=== PATIENT | female | born 1990 | race American Indian/Alaskan Native ===

== ENCOUNTER 2017-05-19 17:05 | Emergency (ER) | payer SELFPAY ==
[2017-05-19 19:05] LABS: Hematocrit 40.2 % (30.3-42.9); Hemoglobin 13.7 gm/dl (10.1-14.3); Mean Corpuscular Hemoglobin 31 pg (28-32); Mean Corpuscular Volume 92 fl (79-97); Red Blood Count 4.36 M/mm3 (3.65-5.03)
[2017-05-19 19:06] LABS: Mean Corpuscular HGB Conc 34 % (30-34); Platelet Count 217 K/mm3 (140-440); Red Cell Distribution Width 12.6 % (13.2-15.2)
[2017-05-19 19:15] LABS: Anion Gap 19 mmol/L; Carbon Dioxide 22 mmol/L (22-30); Chloride 99.5 mmol/L (98-107); Potassium 3.7 mmol/L (3.6-5.0); Sodium 137 mmol/L (137-145)
[2017-05-19 19:16] LABS: BUN/Creatinine Ratio 21.66; Blood Urea Nitrogen 13 mg/dL (7-17); Glucose 96 mg/dL (65-100)
[2017-05-19 19:19] LABS: Albumin 4.6 g/dL (3.9-5); Albumin/Globulin Ratio 1.3 %; Bilirubin,Direct 0.5 mg/dL (0-0.2); Bilirubin,Indirect 0.6 mg/dL; Bilirubin,Total 1.1 mg/dL (0.1-1.2); Total Protein 8.2 g/dL (6.3-8.2)
[2017-05-19 20:03] LABS: Basophils % (Manual) 0 % (0.0-1.8); Blastocytes % (Manual) 0 %
[2017-05-19 20:04] LABS: Anisocytosis 1+; Diff Status Complete; Large Platelets Few; Platelet Estimate Consistent w Auto
[2017-05-19] MEDS ORDERED: PEPCID IV ONE (20:23)
[2017-05-19] MEDS ORDERED: CARAFATE PO ONE (20:23)
[2017-05-19] MEDS ORDERED: NACL 0.9% 500 ML 500 ML IV ONE (20:23)
[2017-05-19] MEDS ORDERED: ALUM-MAG HYDROX-SIMETH 200-200-20MG/5ML PO ONE (20:23)
--- NOTE | 2017-05-19 20:24 | Emergency Department Report ---
ED General Adult HPI - General Chief complaint: Chest Pain Stated complaint: ABD PAIN/CHEST TIGHTNESS Time Seen by Provider: 05/19/17 18:44 Source: patient, EMS, RN notes reviewed Mode of arrival: Stretcher Limitations: No Limitations - History of Present Illness Initial comments: This is a 27-year-old female, the patient is previously unknown to me. The patient does not have a primary care doctor, and denies chronic medical conditions. Patient brought to the hospital by EMS for upper abdominal pain, and chest tightness. The abdominal pain is epigastric, and radiates to the back. There is no vomiting or diaphoresis. Patient specifically denies right upper quadrant pain. Patient reports recent trip from [place], and reports pain with deep inspiration. There is no hematemesis, the patient also endorses brown stool mixed with red blood. She endorses 1-2 episodes of "diarrhea." Over the past 24 hours. No recent antibiotic use, no recent sick contacts, denies IV drug use, denies cocaine use, denies aspirin use. States no exacerbating or relieving factors. -: Gradual Location: chest, abdomen Radiation: back Severity scale (0 -10): 7 Consistency: intermittent Improves with: none Worsens with: none Associated Symptoms: chest pain - Related Data Previous Rx's Medication Instructions Recorded Last Taken Type Dicyclomine [Bentyl] 10 mg PO QID PRN #20 capsule 05/20/17 Unknown Rx Famotidine [Pepcid] 20 mg PO QDAY #20 tablet 05/20/17 Unknown Rx Ondansetron [Zofran Odt] 4 mg PO QID PRN #20 tab.rapdis 05/20/17 Unknown Rx Allergies Allergy/AdvReac Type Severity Reaction Status Date / Time No Known Allergies Allergy Verified 05/19/17 18:05 ED Review of Systems ROS: Stated complaint: ABD PAIN/CHEST TIGHTNESS Other details as noted in HPI Constitutional: denies: diaphoresis, malaise Eyes: denies: vision change ENT: denies: epistaxis Respiratory: denies: shortness of breath Cardiovascular: chest pain Gastrointestinal: abdominal pain. denies: melena Genitourinary: denies: dysuria Musculoskeletal: back pain Skin: denies: lesions Neurological: weakness. denies: headache Psychiatric: anxiety ED Past Medical Hx - Past Medical History Previous Medical History?: No - Surgical History Past Surgical History?: No - Social History Smoking Status: Never Smoker Substance Use Type: None - Medications Home Medications: Home Medications Medication Instructions Recorded Confirmed Last Taken Type Dicyclomine [Bentyl] 10 mg PO QID PRN #20 capsule 05/20/17 Unknown Rx Famotidine [Pepcid] 20 mg PO QDAY #20 tablet 05/20/17 Unknown Rx Ondansetron [Zofran Odt] 4 mg PO QID PRN #20 tab.rapdis 05/20/17 Unknown Rx ED Physical Exam - General Limitations: No Limitations General appearance: alert, in no apparent distress - Head Head exam: Present: atraumatic, normocephalic - Eye Eye exam: Present: normal appearance, EOMI. Absent: nystagmus - ENT ENT exam: Present: normal exam, normal orophraynx, mucous membranes moist, normal external ear exam - Neck Neck exam: Present: normal inspection, full ROM. Absent: tenderness, meningismus - Respiratory Respiratory exam: Present: normal lung sounds bilaterally. Absent: respiratory distress, wheezes, rales, rhonchi, stridor, chest wall tenderness, accessory muscle use, decreased breath sounds, prolonged expiratory - Cardiovascular Cardiovascular Exam: Present: regular rate, normal rhythm, normal heart sounds. Absent: bradycardia, tachycardia, irregular rhythm, systolic murmur, diastolic murmur, rubs, gallop - GI/Abdominal GI/Abdominal exam: Present: soft, normal bowel sounds, other (there is a negative Doyle sign. There is no right upper quadrant tenderness). Absent: distended, tenderness, guarding, rebound, rigid, pulsatile mass - Rectal Rectal exam: Present: normal inspection, normal rectal tone. Absent: heme (-) stool (escorted by nurse DEMETRIUS LAM) - Extremities Exam Extremities exam: Present: normal inspection, full ROM, normal capillary refill. Absent: tenderness, pedal edema, joint swelling, calf tenderness - Back Exam Back exam: Present: normal inspection, full ROM. Absent: tenderness, CVA tenderness (R), CVA tenderness (L), muscle spasm, paraspinal tenderness, vertebral tenderness - Neurological Exam Neurological exam: Present: alert, oriented X3, normal gait, other (Extraocular movements intact. Tongue midline. No facial droop. Facial sensation intact to light touch in the V1, V2, V3 distribution bilaterally. 5 and 5 strength in 4 extremities.. Sensation is intact to light touch in 4 extremities.). Absent : motor sensory deficit - Psychiatric Psychiatric exam: Present: normal affect, normal mood - Skin Skin exam: Present: warm, dry, intact, normal color. Absent: rash ED Course Vital Signs 05/19/17 05/19/17 05/19/17 17:53 18:00 18:21 Temperature 98.7 F Pulse Rate 118 H 105 H Respiratory 16 19 Rate Blood Pressure 108/74 107/77 108/74 O2 Sat by Pulse 100 98 Oximetry 05/19/17 05/19/17 05/19/17 18:40 19:01 19:21 Temperature Pulse Rate 105 H 101 H 102 H Respiratory 25 H 20 20 Rate Blood Pressure 107/77 107/77 107/77 O2 Sat by Pulse 100 100 100 Oximetry 05/19/17 19:37 Temperature 98.3 F Pulse Rate Respiratory 17 Rate Blood Pressure O2 Sat by Pulse 99 Oximetry ED Medical Decision Making - Lab Data Result diagrams: 05/19/17 18:15 05/19/17 18:15 Vital Signs 05/19/17 05/19/17 05/19/17 17:53 18:00 18:21 Temperature 98.7 F Pulse Rate 118 H 105 H Respiratory 16 19 Rate Blood Pressure 108/74 107/77 108/74 O2 Sat by Pulse 100 98 Oximetry 05/19/17 05/19/17 05/19/17 18:40 19:01 19:21 Temperature Pulse Rate 105 H 101 H 102 H Respiratory 25 H 20 20 Rate Blood Pressure 107/77 107/77 107/77 O2 Sat by Pulse 100 100 100 Oximetry 05/19/17 19:37 Temperature 98.3 F Pulse Rate Respiratory 17 Rate Blood Pressure O2 Sat by Pulse 99 Oximetry Lab Results 05/19/17 05/19/17 05/19/17 Range/Units 18:15 18:15 18:15 WBC 15.0 H (4.5-11.0) K/mm3 RBC 4.36 (3.65-5.03) M/mm3 Hgb 13.7 (10.1-14.3) gm/dl Hct 40.2 (30.3-42.9) % MCV 92 (79-97) fl MCH 31 (28-32) pg MCHC 34 (30-34) % RDW 12.6 L (13.2-15.2) % Plt Count 217 (140-440) K/mm3 Add Manual Diff Complete Total Counted 100 Seg Neuts % (Manual) 94.0 H (40.0-70.0) % Band Neutrophils % 0 % Lymphocytes % (Manual) 3.0 L (13.4-35.0) % Reactive Lymphs % (Man) 0 % Monocytes % (Manual) 2.0 (0.0-7.3) % Eosinophils % (Manual) 1.0 (0.0-4.3) % Basophils % (Manual) 0 (0.0-1.8) % Metamyelocytes % 0 % Myelocytes % 0 % Promyelocytes % 0 % Blast Cells % 0 % Nucleated RBC % Not Reportable Seg Neutrophils # Man 14.1 H (1.8-7.7) K/mm3 Band Neutrophils # 0.0 K/mm3 Lymphocytes # (Manual) 0.5 L (1.2-5.4) K/mm3 Abs React Lymphs (Man) 0.0 K/mm3 Monocytes # (Manual) 0.3 (0.0-0.8) K/mm3 Eosinophils # (Manual) 0.2 (0.0-0.4) K/mm3 Basophils # (Manual) 0.0 (0.0-0.1) K/mm3 Metamyelocytes # 0.0 K/mm3 Myelocytes # 0.0 K/mm3 Promyelocytes # 0.0 K/mm3 Blast Cells # 0.0 K/mm3 WBC Morphology Not Reportable Hypersegmented Neuts Not Reportable Hyposegmented Neuts Not Reportable Hypogranular Neuts Not Reportable Smudge Cells Not Reportable Toxic Granulation Not Reportable Toxic Vacuolation Not Reportable Dohle Bodies Not Reportable Pelger-Huet Anomaly Not Reportable Janet Rods Not Reportable Platelet Estimate Consistent w auto Clumped Platelets Not Reportable Plt Clumps, EDTA Not Reportable Large Platelets Few Giant Platelets Not Reportable Platelet Satelliting Not Reportable Plt Morphology Comment Not Reportable RBC Morphology Not Reportable Dimorphic RBCs Not Reportable Polychromasia Not Reportable Hypochromasia Not Reportable Poikilocytosis Not Reportable Anisocytosis 1+ Microcytosis Not Reportable Macrocytosis Not Reportable Spherocytes Not Reportable Pappenheimer Bodies Not Reportable Sickle Cells Not Reportable Target Cells Not Reportable Tear Drop Cells Not Reportable Ovalocytes Not Reportable Helmet Cells Not Reportable Wei-Cutter Bodies Not Reportable Russell Rings Not Reportable Greer Cells Not Reportable Bite Cells Not Reportable Crenated Cell Not Reportable Elliptocytes Not Reportable Acanthocytes (Spur) Not Reportable Rouleaux Not Reportable Hemoglobin C Crystals Not Reportable Schistocytes Not Reportable Malaria parasites Not Reportable Ritesh Bodies Not Reportable Hem Pathologist Commnt No PT (12.2-14.9) Sec. INR (0.87-1.13) D-Dimer (0-234) ng/mlDDU Sodium 137 (137-145) mmol/L Potassium 3.7 (3.6-5.0) mmol/L Chloride 99.5 (98-107) mmol/L Carbon Dioxide 22 (22-30) mmol/L Anion Gap 19 mmol/L BUN 13 (7-17) mg/dL Creatinine 0.6 L (0.7-1.2) mg/dL Estimated GFR > 60 ml/min BUN/Creatinine Ratio 21.66 % Glucose 96 (65-100) mg/dL Calcium 12.0 H (8.4-10.2) mg/dL Total Bilirubin (0.1-1.2) mg/dL Direct Bilirubin (0-0.2) mg/dL Indirect Bilirubin mg/dL AST (5-40) units/L ALT (7-56) units/L Alkaline Phosphatase (35-129) units/L Troponin T < 0.010 (0.00-0.029) ng/mL Total Protein (6.3-8.2) g/dL Albumin (3.9-5) g/dL Albumin/Globulin Ratio % Amylase (27-131) units/L Lipase (13-60) units/L HCG, Qual Negative (Negative) 05/19/17 05/19/17 05/19/17 Range/Units 18:15 21:00 21:00 WBC (4.5-11.0) K/mm3 RBC (3.65-5.03) M/mm3 Hgb (10.1-14.3) gm/dl Hct (30.3-42.9) % MCV (79-97) fl MCH (28-32) pg MCHC (30-34) % RDW (13.2-15.2) % Plt Count (140-440) K/mm3 Add Manual Diff Total Counted Seg Neuts % (Manual) (40.0-70.0) % Band Neutrophils % % Lymphocytes % (Manual) (13.4-35.0) % Reactive Lymphs % (Man) % Monocytes % (Manual) (0.0-7.3) % Eosinophils % (Manual) (0.0-4.3) % Basophils % (Manual) (0.0-1.8) % Metamyelocytes % % Myelocytes % % Promyelocytes % % Blast Cells % % Nucleated RBC % Seg Neutrophils # Man (1.8-7.7) K/mm3 Band Neutrophils # K/mm3 Lymphocytes # (Manual) (1.2-5.4) K/mm3 Abs React Lymphs (Man) K/mm3 Monocytes # (Manual) (0.0-0.8) K/mm3 Eosinophils # (Manual) (0.0-0.4) K/mm3 Basophils # (Manual) (0.0-0.1) K/mm3 Metamyelocytes # K/mm3 Myelocytes # K/mm3 Promyelocytes # K/mm3 Blast Cells # K/mm3 WBC Morphology Hypersegmented Neuts Hyposegmented Neuts Hypogranular Neuts Smudge Cells Toxic Granulation Toxic Vacuolation Dohle Bodies Pelger-Huet Anomaly Janet Rods Platelet Estimate Clumped Platelets Plt Clumps, EDTA Large Platelets Giant Platelets Platelet Satelliting Plt Morphology Comment RBC Morphology Dimorphic RBCs Polychromasia Hypochromasia Poikilocytosis Anisocytosis Microcytosis Macrocytosis Spherocytes Pappenheimer Bodies Sickle Cells Target Cells Tear Drop Cells Ovalocytes Helmet Cells Wei-Cutter Bodies Russell Rings Greer Cells Bite Cells Crenated Cell Elliptocytes Acanthocytes (Spur) Rouleaux Hemoglobin C Crystals Schistocytes Malaria parasites Ritesh Bodies Hem Pathologist Commnt PT 13.0 (12.2-14.9) Sec. INR 0.99 (0.87-1.13) D-Dimer 366.59 H (0-234) ng/mlDDU Sodium (137-145) mmol/L Potassium (3.6-5.0) mmol/L Chloride (98-107) mmol/L Carbon Dioxide (22-30) mmol/L Anion Gap mmol/L BUN (7-17) mg/dL Creatinine (0.7-1.2) mg/dL Estimated GFR ml/min BUN/Creatinine Ratio % Glucose (65-100) mg/dL Calcium (8.4-10.2) mg/dL Total Bilirubin 1.10 (0.1-1.2) mg/dL Direct Bilirubin 0.5 H (0-0.2) mg/dL Indirect Bilirubin 0.6 mg/dL AST 587 H (5-40) units/L ALT 270 H (7-56) units/L Alkaline Phosphatase 87 (35-129) units/L Troponin T < 0.010 (0.00-0.029) ng/mL Total Protein 8.2 (6.3-8.2) g/dL Albumin 4.6 (3.9-5) g/dL Albumin/Globulin Ratio 1.3 % Amylase 52 (27-131) units/L Lipase 19 (13-60) units/L HCG, Qual (Negative) - EKG Data -: EKG Interpreted by Me - EKG Data 05/20/17 00:30 EKG #1 demonstrates sinus tachycardia, 108 bpm, normal axis, normal intervals, nonspecific T-wave abnormality EKG #2 demonstrates normal sinus, 90 bpm, normal intervals, normal axis, not morphologically consistent with STEMI - Radiology Data Radiology results: report reviewed, image reviewed interpreted by me: X-ray of the chest is negative Right upper quadrant ultrasound demonstrates biliary stones without evidence of cholecystitis. CT scan of the chest demonstrates no dissection or pulmonary embolus, borderline findings of congestive heart failure are noted. - Medical Decision Making Differential diagnosis: Cholecystitis, hepatitis, pneumonia, pulmonary embolus, acute coronary syndrome, enteritis Assessment and plan: 27-year-old female with a complaint of abdominal pain, chest pain, brown stool mixed with red blood. The patient is afebrile, now with reassuring vital signs and her tachycardia has resolved. EKG unremarkable 2, troponin negative 2, low risk by MARGARET score, low risk by heart score, CT scan findings are appreciated, clinically the patient is not in acute congestive heart failure, she is not desaturating, she has no crackles or rales , and I find her suitable to follow up with outpatient cardiology for her chest pain and these nonspecific findings. There is no right upper quadrant pain, tenderness, Doyle sign, her tachycardia has resolved, and she is able to tolerate liquid feeds. She can follow up with outpatient general surgery for her biliary stones. Her transaminitis is appreciated, she can follow up with outpatient primary care or gastroenterology for this. No episodes of nausea or diarrhea noted in the ER, tachycardia resolved, resting comfortable, suitable for discharge at this time. Critical care attestation.: If time is entered above; I have spent that time in minutes in the direct care of this critically ill patient, excluding procedure time. ED Disposition Clinical Impression: Transaminitis, Cholelithiases Disposition: TO HOME OR SELFCARE Is pt being admited?: No Does the pt Need Aspirin: No Condition: Stable Instructions: Viral Hepatitis A (ED) Additional Instructions: Take the pain medication, nausea medication as directed. Laboratory studies mistreated elevation in liver function tests. 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 Avoid consumption of alcohol, acetaminophen. Take ibuprofen [id number], 400 mg with food every 6 hours, as needed for pain. Ultrasound demonstrated stones in the gallbladder. Avoid consumption of heavy and or spicy food. Follow-up with a general surgeon within the next month for this. Return to the ER right away with new pain, worsened pain, migration of pain, fevers, chills, intractable nausea or vomiting, confusion, inability to tolerate liquid feeds. Referrals: PRIMARY CARE, [Primary Care Provider] - 3-5 Days NATALY GOMEZ MD [Staff Physician] - 3-5 Days FRANCES ARMENDARIZ MD [Staff Physician] - 3-5 Days RUDDY GUTHRIE MD [Staff Physician] - 3-5 Days GENNARO HORAN MD [Staff Physician] - 3-5 Days
[2017-05-19 21:32] LABS: INR 0.99 (0.87-1.13)
[2017-05-19] MEDS ORDERED: NACL ONE (22:10)
--- NOTE | 2017-05-19 22:46 | Ultrasound Report ---
FINAL REPORT PROCEDURE: US ABDOMEN LIMITED TECHNIQUE: Real-time sonography was performed of the right upper quadrant of the abdomen with image documentation. CPT 71634 HISTORY: abd pain COMPARISON: No prior studies are available for comparison. FINDINGS: Cholelithiasis is seen without evidence of cholecystitis or biliary ductal dilation. The limited views of the pancreas display no abnormalities. No focal hepatic abnormality is seen. Right kidney measures 11.3 cm in length and displays no abnormalities. Visualized portions of the abdominal aorta display no abnormalities. IMPRESSION: Multiple small gallstones are seen without evidence of cholecystitis or biliary ductal dilation.
--- NOTE | 2017-05-19 23:03 | Cat Scan Report ---
FINAL REPORT PROCEDURE: CT ANGIO CHEST TECHNIQUE: Computerized tomographic angiography of the chest was performed after the IV injection of iodinated nonionic contrast including image processing. The image data was postprocessed using 2-dimensional multiplanar reformatted (MPR) and 3-dimensional (MIP and/or volume rendered) techniques. HISTORY: Chest pain, abdomen pain COMPARISON: No prior studies are available for comparison. FINDINGS: Lungs appear clear. No pneumothorax or pleural effusion is seen. Cholelithiasis is seen but gallbladder is not well evaluated on this study. No mediastinal lymphadenopathy is seen. Borderline changes of CHF are present. Thoracic aorta is normal in size without evidence of dissection. No pulmonary embolus is seen. IMPRESSION: Borderline changes of CHF are seen but no pulmonary embolus is seen. Small gallstones are seen.
[2017-05-20 01:41] VITALS: BP 113/76
--- NOTE | 2017-05-20 08:09 | XRay Report ---
CHEST TWO VIEWS: 05/19/17 17:05:00 CLINICAL: Chest pain for three days. COMPARISON: None FINDINGS: Normal heart and pulmonary vasculature. The lungs are normally expanded and clear.The bones and soft tissues are unremarkable. IMPRESSION: Normal chest.
== END 2017-05-20 01:10 | disposition home or self-care (01) ==
LOC: ED 17:05
DX: K80.20 Calculus of gallbladder without cholecystitis without obstruction (principal); R74.0 Nonspecific elevation of levels of transaminase and lactic acid dehydrogenase [LDH]
CPT/HCPCS: 36415; 71020; 71275; 76705; 80048; 80074; 82150; 82271; 83690; 84484; 84703; 85007; 85025; 85379; 85610; 93005; 93010; 96361; 96374; 99285; J7040; Q9967

== ENCOUNTER 2017-08-23 10:40 | Emergency (ER) | payer SELFPAY ==
[2017-08-23 10:49] VITALS: BP 118/84
[2017-08-23 11:43] LABS: Bacteria,Urine 1+ /HPF (Negative); Bilirubin,Urine NEG (Negative); Blood,Urine SM (Negative); Ketones,Urine NEG (Negative); Leukocyte Esterase,Urine LG (Negative); Mucus,Urine 3+ /HPF; Nitrite,Urine NEG (Negative); Protein,Urine <15 mg/dL mg/dL (Negative); Urobilinogen,Urine < 2.0 mg/dL (<2.0)
--- NOTE | 2017-08-23 14:12 | Emergency Department Report ---
ED Female HPI - General Chief complaint: Urogenital-Female Stated complaint: ABDOMINAL PAIN Time Seen by Provider: 08/23/17 13:19 Source: patient Mode of arrival: Ambulatory Limitations: No Limitations - History of Present Illness Initial comments: pt is27 y/o aaf with hx uti who presents for superpubic pain dysuria and frequency x 4 days pt denies fever chills no n/v no vaginal discharge. LMP 3 days ago MD Complaint: dysuria Onset/Timin -: days(s) Location: suprapubic Severity: moderate Severity scale (0 -10): 4 Quality: cramping - Related Data Previous Rx's Medication Instructions Recorded Last Taken Type Dicyclomine [Bentyl] 10 mg PO QID PRN #20 capsule 05/20/17 Unknown Rx Famotidine [Pepcid] 20 mg PO QDAY #20 tablet 05/20/17 Unknown Rx Ondansetron [Zofran Odt] 4 mg PO QID PRN #20 tab.rapdis 05/20/17 Unknown Rx Cephalexin [Keflex] 500 mg PO Q12HR #14 cap 08/23/17 Unknown Rx Ibuprofen 800 mg PO TID PRN #30 tablet 08/23/17 Unknown Rx Allergies Allergy/AdvReac Type Severity Reaction Status Date / Time No Known Allergies Allergy Verified 05/19/17 18:05 ED Review of Systems ROS: Stated complaint: ABDOMINAL PAIN Other details as noted in HPI Constitutional: denies: chills, fever Eyes: denies: eye pain, eye discharge, vision change ENT: denies: ear pain, throat pain Respiratory: denies: cough, shortness of breath, wheezing Cardiovascular: denies: chest pain, palpitations Endocrine: no symptoms reported Gastrointestinal: denies: abdominal pain, nausea, diarrhea Genitourinary: urgency, dysuria, frequency. denies: hematuria, discharge, abnormal menses, dyspareunia Musculoskeletal: denies: back pain, joint swelling, arthralgia Skin: denies: rash, lesions Neurological: denies: headache, weakness, paresthesias Psychiatric: denies: anxiety, depression Hematological/Lymphatic: denies: easy bleeding, easy bruising ED Past Medical Hx - Past Medical History Previous Medical History?: Yes Additional medical history: Vaginal delivery x 2 - Surgical History Past Surgical History?: Yes Additional Surgical History: x 1 - Social History Smoking Status: Never Smoker Substance Use Type: Alcohol, Non Opiate Pain - Medications Home Medications: Home Medications Medication Instructions Recorded Confirmed Last Taken Type Dicyclomine [Bentyl] 10 mg PO QID PRN #20 capsule 05/20/17 Unknown Rx Famotidine [Pepcid] 20 mg PO QDAY #20 tablet 05/20/17 Unknown Rx Ondansetron [Zofran Odt] 4 mg PO QID PRN #20 tab.rapdis 05/20/17 Unknown Rx Cephalexin [Keflex] 500 mg PO Q12HR #14 cap 08/23/17 Unknown Rx Ibuprofen 800 mg PO TID PRN #30 tablet 08/23/17 Unknown Rx ED Physical Exam - General Limitations: No Limitations General appearance: alert, in no apparent distress - Head Head exam: Present: atraumatic, normocephalic - Eye Eye exam: Present: normal appearance - ENT ENT exam: Present: mucous membranes moist - Neck Neck exam: Present: normal inspection - Respiratory Respiratory exam: Present: normal lung sounds bilaterally. Absent: respiratory distress - Cardiovascular Cardiovascular Exam: Present: regular rate, normal rhythm. Absent: systolic murmur, diastolic murmur, rubs, gallop - GI/Abdominal GI/Abdominal exam: Present: soft, normal bowel sounds - Rectal Rectal exam: Present: deferred - Extremities Exam Extremities exam: Present: normal inspection - Back Exam Back exam: Present: normal inspection, full ROM. Absent: tenderness, CVA tenderness (R), CVA tenderness (L) - Neurological Exam Neurological exam: Present: alert, oriented X3, normal gait - Psychiatric Psychiatric exam: Present: normal affect, normal mood - Skin Skin exam: Present: warm, dry, intact, normal color. Absent: rash ED Course Vital Signs 08/23/17 10:46 Temperature 99 F Pulse Rate 82 Respiratory 23 Rate Blood Pressure 118/84 O2 Sat by Pulse 100 Oximetry ED Medical Decision Making - Lab Data Laboratory Tests 08/23/17 11:25 Urine Color Yellow Urine Turbidity Clear Urine pH 6.0 Ur Specific [place] 1.023 Urine Protein <15 mg/dl Urine Glucose (UA) Neg Urine Ketones Neg Urine Blood Sm Urine Nitrite Neg Urine Bilirubin Neg Urine Urobilinogen < 2.0 Ur Leukocyte Esterase Lg Urine WBC (Auto) 96.0 H Urine RBC (Auto) 24.0 U Epithel Cells (Auto) 28.0 H Urine Bacteria (Auto) 1+ Urine Mucus 3+ - Medical Decision Making pos dysuria frequency and urgency , not preg, no vaginal discharge no fever no chills, ua: pos leuk, wbc, will tx for uti, pt will follow up with pcp in 2-3 days Critical care attestation.: If time is entered above; I have spent that time in minutes in the direct care of this critically ill patient, excluding procedure time. ED Disposition Clinical Impression: UTI (urinary tract infection) Qualifiers: Urinary tract infection type: acute cystitis Hematuria presence: without hematuria Qualified Code(s): N30.00 - Acute cystitis without hematuria Disposition: TO HOME OR SELFCARE Is pt being admited?: No Does the pt Need Aspirin: No Condition: Good Instructions: Urinary Tract Infection in Women (ED) Prescriptions: Cephalexin [Keflex] 500 mg PO Q12HR #14 cap Ibuprofen 800 mg PO TID PRN #30 tablet PRN Reason: Pain Referrals: NKECHI REDDY MD [Staff Physician] - 3-5 Days Forms: Work/School Release Form(ED) Time of Disposition: 14:15
== END 2017-08-23 14:24 | disposition home or self-care (01) ==
LOC: ED 10:40
DX: N30.00 Acute cystitis without hematuria (principal)
CPT/HCPCS: 81001; 99283

== ENCOUNTER → 2017-12-27 21:56 | Emergency (ER) | payer SELFPAY | END | disposition left against medical advice (07) | LOC: ED 21:56 | DX: R11.10 Vomiting, unspecified (principal); R51 Headache; M79.1 Myalgia; Z53.21 Procedure and treatment not carried out due to patient leaving prior to being seen by health care provider ==

== ENCOUNTER 2019-06-25 12:53 | Emergency (ER) | payer MEDICAID ==
[2019-06-25] MEDS ORDERED: BENADRYL IV ONE (14:40)
[2019-06-25] MEDS ORDERED: REGLAN IV ONE (14:40)
[2019-06-25] MEDS ORDERED: TORADOL IV ONE (14:40)
--- NOTE | 2019-06-25 15:40 | Emergency Department Report ---
ED Headache HPI - General Chief Complaint: Headache Stated Complaint: HEADACHE Time Seen by Provider: 06/25/19 14:28 Source: patient Exam Limitations: no limitations - History of Present Illness Initial Comments: 29-year-old female with a past medical history of previous vaginal delivery presents to hospital complaining of headache 3 days. Headache has been in the middle of her forehead and pressure behind her eyes. Has been constant and unchanged with [id number] medication. She complains of light sensitivity and having the smell blood in her nose but is not bleeding. She denies nausea, vomiting, neck pain, recent trauma, or fever. History of headaches in the past but typically improved with [id number] medication. Allergies/Adverse Reactions: Allergies No Known Allergies Allergy (Verified 06/25/19 12:54) Home Medications: Ambulatory Orders Dicyclomine [Bentyl] 10 mg PO QID PRN #20 capsule 05/20/17 Famotidine [Pepcid] 20 mg PO QDAY #20 tablet 05/20/17 Ondansetron [Zofran Odt] 4 mg PO QID PRN #20 tab.rapdis 05/20/17 Ibuprofen 800 mg PO TID PRN #30 tablet 08/23/17 cephALEXin [Keflex] 500 mg PO Q12HR #14 cap 08/23/17 Doxycycline Monohydrate 100 mg PO BID #14 tablet 06/25/19 Ibuprofen [Motrin] 800 mg PO Q8HR PRN #30 tablet 06/25/19 Pseudoephedrine ER [Sudafed 12 Hr] 120 mg PO BID PRN #20 tablet.er 06/25/19 traMADol [Ultram 50 MG tab] 50 mg PO Q6HR PRN #20 tablet 06/25/19 ED Review of Systems ROS: Stated complaint: HEADACHE Other details as noted in HPI Comment: All other systems reviewed and negative ED Past Medical Hx - Past Medical History Additional medical history: Vaginal delivery x 2 - Surgical History Additional Surgical History: x 1 - Social History Smoking Status: Never Smoker Substance Use Type: Alcohol - Medications Home Medications: Home Medications Medication Instructions Recorded Confirmed Last Taken Type Dicyclomine [Bentyl] 10 mg PO QID PRN #20 capsule 05/20/17 Unknown Rx Famotidine [Pepcid] 20 mg PO QDAY #20 tablet 05/20/17 Unknown Rx Ondansetron [Zofran Odt] 4 mg PO QID PRN #20 tab.rapdis 05/20/17 Unknown Rx Ibuprofen 800 mg PO TID PRN #30 tablet 08/23/17 Unknown Rx cephALEXin [Keflex] 500 mg PO Q12HR #14 cap 08/23/17 Unknown Rx Doxycycline Monohydrate 100 mg PO BID #14 tablet 06/25/19 Unknown Rx Ibuprofen [Motrin] 800 mg PO Q8HR PRN #30 tablet 06/25/19 Unknown Rx Pseudoephedrine ER [Sudafed 12 Hr] 120 mg PO BID PRN #20 tablet.er 06/25/19 Unknown Rx traMADol [Ultram 50 MG tab] 50 mg PO Q6HR PRN #20 tablet 06/25/19 Unknown Rx ED Physical Exam - General Limitations: No Limitations - Other Other exam information: Gen.: No acute distress Head: Atraumatic Eyes: Normal appearance ENT: Moist mucous membranes, tenderness at paranasal and frontal sinsus Neck: Normal appearance, no posterior midline tenderness, no meningismus Chest: Clear to auscultation bilaterally Cardiovascular: Regular rate and rhythm Abdomen: Normal appearance, soft, nontender, no rebound or guarding, normal bowel sounds Back: Normal appearance, nontender Extremity: Full range of motion, normal appearance Neuro: Aler oriented 3 t, clear speech, no focal motor or sensory deficit, bfsggk-sukf-[id number] function intact Psychiatric: Appropriate Skin: No rash ED Course Vital Signs 06/25/19 13:13 Temperature 98.2 F Pulse Rate 86 Respiratory 18 Rate Blood Pressure 140/97 O2 Sat by Pulse 99 Oximetry ED Medical Decision Making - Radiology Data Radiology results: report reviewed CT head/brain wo con INDICATION / CLINICAL INFORMATION: 29 years Female; MAIN: headache NO TRAUMA. TECHNIQUE: Routine CT head without contrast. All CT scans at this location are performed using CT dose reduction for ALARA by means of automated exposure control. COMPARISON: None. FINDINGS: BRAIN / INTRACRANIAL CONTENTS: No acute hemorrhage, mass effect, midline shift, hydrocephalus, or acute, large territorial infarct. No chronic infarct or focal atrophy. No significant white matter abnormality. CRANIOCERVICAL JUNCTION: No significant abnormality. ORBITS: No significant abnormality of visualized orbits. SINUSES / MASTOIDS: Significant opacification of the paranasal sinuses seen, along with areas of desiccated secretions. Air-fluid level seen in the left sphenoid sinus. ADDITIONAL FINDINGS: None. IMPRESSION: 1. No focal mass, hemorrhage, hydrocephalus, or acute, large territorial infarct. 2. Significant sinus disease noted. - Medical Decision Making pereyra improved with Toradol, Reglan, and Benadryl Augmentin provided for sinusitis sx improved with treatment and will be discharged with meds and follow up doxy prescribed b/c covered by insurance - Differential Diagnosis migraine, tension headache, sinus headache, headache NOS Critical Care Time: No Critical care attestation.: If time is entered above; I have spent that time in minutes in the direct care of this critically ill patient, excluding procedure time. ED Disposition Clinical Impression: Paranasal sinus disease, Sphenoid sinusitis, Sinus headache Disposition: TO HOME OR SELFCARE Is pt being admited?: No Does the pt Need Aspirin: No Condition: Stable Instructions: Sinusitis (ED) Additional Instructions: Take the medication as prescribed. Follow-up with your doctor or with the doctor/clinic provided. Return if symptoms worsen as indicated by your discharge instructions. Prescriptions: Doxycycline Monohydrate 100 mg PO BID #14 tablet Ibuprofen [Motrin] 800 mg PO Q8HR PRN #30 tablet PRN Reason: Pain, Moderate (4-6) Pseudoephedrine ER [Sudafed 12 Hr] 120 mg PO BID PRN #20 tablet.er PRN Reason: Nasal Congestion traMADol [Ultram 50 MG tab] 50 mg PO Q6HR PRN #20 tablet PRN Reason: Pain Referrals: TAYA PETERS MD [Primary Care Provider] - 3-5 Days [facility] [Provider Group] - 3-5 Days SRAVANTHI AGUSTIN MD [Staff Physician] - 3-5 Days KALEN WARD MD [Staff Physician] - 3-5 Days Time of Disposition: 17:51
--- NOTE | 2019-06-25 16:01 | Cat Scan Report ---
CT head/brain wo con INDICATION / CLINICAL INFORMATION: 29 years Female; MAIN: headache NO TRAUMA. TECHNIQUE: Routine CT head without contrast. All CT scans at this location are performed using CT dos e reduction for ALARA by means of automated exposure control. COMPARISON: None. FINDINGS: BRAIN / INTRACRANIAL CONTENTS: No acute hemorrhage, mass effect, midline shift, hydrocephalus, or acu te, large territorial infarct. No chronic infarct or focal atrophy. No significant white matter abnor mality. CRANIOCERVICAL JUNCTION: No significant abnormality. ORBITS: No significant abnormality of visualized orbits. SINUSES / MASTOIDS: Significant opacification of the paranasal sinuses seen, along with areas of nimo ccated secretions. Air-fluid level seen in the left sphenoid sinus. ADDITIONAL FINDINGS: None. IMPRESSION: 1. No focal mass, hemorrhage, hydrocephalus, or acute, large territorial infarct. 2. Significant sinus disease noted. Signer Name: Juan Brown MD, III Signed: 06/25/2019 3:57 PM Workstation Name: [id number]
[2019-06-25] MEDS ORDERED: AUGMENTIN 875 MG PO ONE (16:32)
[2019-06-25 18:08] VITALS: BP 117/78
== END 2019-06-25 18:17 | disposition home or self-care (01) ==
LOC: ED 12:53
DX: J32.3 Chronic sphenoidal sinusitis (principal); Z79.899 Other long term (current) drug therapy
CPT/HCPCS: 70450; 96374; 96375; 99283; J1200; J1885; J2765